=== PATIENT | female | born 1980 | race Caucasian/White ===

== ENCOUNTER 2017-11-07 15:55 | Emergency (ER) | payer OTHER ==
[~2017-11-07] VITALS: Ht 144.8 cm; Wt 55.3 kg
[2017-11-07 15:59] VITALS: BP 141/50
--- NOTE | 2017-11-07 16:03 | NUR ---
PT AMBULATED TO BED 8.
--- NOTE | 2017-11-07 16:04 | NUR ---
REPORT GIVEN TO ARON CARBALLO.
--- NOTE | 2017-11-07 16:10 | NUR ---
37f bib mother with c/o bl ear discharge and odor and nasal congestion since yesterday. Patient denies any fevers, n/v/d, or cough. Patient with mental delay. Per mother, patient is acting at neuro baseline. RR are even and unlabored. VSS. Awaiting er md paulino.
--- NOTE | 2017-11-07 17:52 | NUR ---
PATIENT LEFT WITHOUT BEING SEEN BY DR. NIXON. NO FURTHER CARE PROVIDED FOR PATIENT.
== END 2017-11-07 17:52 | disposition left against medical advice (07) ==
LOC: MED 15:55
DX: H92.03 Otalgia, bilateral (principal); Z53.21 Procedure and treatment not carried out due to patient leaving prior to being seen by health care provider